=== PATIENT | female | born 1940 | race Caucasian/White ===

== ENCOUNTER 2016-10-25 09:38 | Outpatient (CLI) | payer MEDICARE, OTHER ==
[2016-10-25 14:04] LABS: BASOPHILS # (AUTO) 0.1 10^3/uL (0.0-0.1); EOSINOPHILS # (AUTO) 0.3 10^3/uL (0.0-0.7); EOSINOPHILS % (AUTO) 3.6 %; HCT - HEMATOCRIT 39.5 % (37.0-47.0); HGB - HEMOGLOBIN 13.3 g/dL (12.0-16.0); LYMPHOCYTES % (AUTO) 42.5 %; MEAN CORPUSCULAR HGB CONC 33.7 g/dL (32.0-36.0); MEAN PLATELET VOLUME 8.3 fL (7.9-10.8); MONOCYTES # (AUTO) 0.6 10^3/uL (0.0-1.0); MONOCYTES % (AUTO) 8.9 %; NEUTROPHILS # (AUTO) 3.1 10^3/uL (1.5-6.6); RED CELL DISTRIBUTION WIDTH 12.8 % (12.0-15.0); UNCORRECTED WHITE BLOOD COUNT 7.1 x10^3/uL; WHITE BLOOD COUNT 7.1 x10^3/uL (4.8-10.8)
[2016-10-25 14:24] LABS: ALBUMIN/GLOBULIN RATIO 1.4 (1.0-2.2); BILIRUBIN,TOTAL 0.6 mg/dL (0.2-1.0); BUN - BLOOD UREA NITROGEN 16 mg/dL (6-20); CALCIUM 9.6 mg/dL (8.5-10.3); CARBON DIOXIDE - CO2 28 mmol/L (21-32); CHLORIDE 107 mmol/L (101-111); CHOLESTEROL 158 mg/dL; CREATININE 0.6 mg/dL (0.4-1.0); GFR - MDRD 97 (>89); GLUCOSE 97 mg/dL (70-100); HDL CHOLESTEROL 52 mg/dL; LDL/HDL RATIO 1.2 (<4.4); POTASSIUM 4.2 mmol/L (3.5-5.0); SODIUM 142 mmol/L (135-145); TOTAL PROTEIN 7.1 g/dL (6.7-8.2); TRIGLYCERIDES 213 mg/dL; VLDL CHOLESTEROL 43 mg/dL
== END 2016-10-25 09:39 | disposition home or self-care (01) ==
LOC: LAB.WCP 09:38
PROVIDERS: ATTEND Physician Assistant Medical
DX: R94.6 Abnormal results of thyroid function studies (principal); I10 Essential (primary) hypertension; K21.9 Gastro-esophageal reflux disease without esophagitis; I25.10 Atherosclerotic heart disease of native coronary artery without angina pectoris; E78.5 Hyperlipidemia, unspecified
CPT/HCPCS: 36415; 80053; 80061; 84443; 85025

== ENCOUNTER 2016-12-19 13:01 | Outpatient (CLI) | payer MEDICARE, OTHER ==
--- NOTE | 2016-12-21 08:35 | DEXA Report ---
DEXA BONE MINERAL SCAN: 12/19/2016 CLINICAL HISTORY: A 76-year-old postmenopausal female. TECHNIQUE: Dual energy x-ray absorptiometry (DXA) was performed on a [employer] system. Regions measured are the AP spine, femoral neck, and, if needed, forearm. COMPARISON: None. In accordance with the International Society for Clinical Densitometry (ISCD) guidelines, data from previous exams may be reanalyzed using current recommendations and techniques. This is done to allow a more accurate basis for comparison with the current study. FINDINGS: The data for the lumbar spine is as follows: REGION BMD (g/cm/cm) T-SCORE Z-SCORE L1 1.331 1.7 3.3 L2 1.371 1.4 3.0 L3 1.311 0.9 2.5 L4 1.248 0.4 2.0 TOTAL 1.307 1.1 2.6 NOTE: All evaluable vertebrae are used for classification. The data for the hip is as follows: REGION BMD (g/cm/cm) T-SCORE Z-SCORE Neck 0.953 -0.6 1.3 TOTAL 0.918 -0.7 1.0 NOTE: The femoral neck or total proximal femur, whichever is lowest, is used for classification. IMPRESSION: THE WHO CLASSIFICATION BASED ON THE INTERNATIONAL REFERENCE STANDARD IS NORMAL. THE FRACTURE RISK IS NOT INCREASED. RECOMMENDATION: Patients with diagnosis of osteoporosis or osteopenia should have regular bone mineral density assessment. For those eligible for Medicare, routine testing is allowed once every 2 years. Testing frequency can be increased for patients who have rapidly progressing disease or for those who are receiving medical therapy to restore bone mass. COMMENT: World Health Organization (WHO) definitions for osteoporosis and osteopenia: NORMAL BMD: T-score at -1.0 or higher, fracture risk is low. OSTEOPENIA BMD: T-score between -1.0 and -2.5, fracture risk is increased. OSTEOPOROSIS BMD: T-score at -2.5 or lower, fracture risk high. National Osteoporosis Foundation recommends: 1. Obtain adequate dietary calcium (at least 1200 mg per day) and vitamin D (400 -800 international units per day). 2. Participate, as appropriate, in regular weightbearing and muscle- strengthening exercise. 3. Avoid tobacco use and reduce alcohol and caffeine intake. 4. For more detailed information see the website at www.NOF.org. MTDD
== END 2016-12-19 13:02 | disposition home or self-care (01) ==
LOC: DI 13:01
PROVIDERS: ATTEND Family Medicine
DX: Z78.0 Asymptomatic menopausal state (principal)
CPT/HCPCS: 77080

== ENCOUNTER 2017-07-28 14:43 | Inpatient (IN) | payer MEDICARE, OTHER ==
[2017-07-28] MEDS ORDERED: SODIUM CHLORIDE 0.9% 1,000 ML IV ONE (15:59)
[2017-07-28] MEDS ORDERED: PANTOPRAZOLE 40 MG VIAL IVP STA (16:00)
--- NOTE | 2017-07-28 16:01 | ED Physician Documentation ---
PD HPI ABD PAIN - Stated complaint Stated Complaint: FEMALE /BLEEDING - Chief complaint Chief Complaint: Abd Pain - History obtained from History obtained from: Patient - History of Present Illness Timing - onset: Other (76-year-old woman with hypertension, does take baby aspirin daily. About 5 days ago she had dark and tarry stools for 3 days with increased stomach grumbling but no overt pain. Yesterday and less so today she had dark blood from the rectum. Last colonoscopy was approximately 10 years ago.) Review of Systems Constitutional: reports: Reviewed and negative Nose: reports: Reviewed and negative Cardiac: reports: Reviewed and negative Respiratory: reports: Reviewed and negative PD PAST MEDICAL HISTORY - Past Medical History Cardiovascular: Hypertension Respiratory: None Musculoskeletal: Osteoarthritis, Chronic back pain - Present Medications Home Medications: Ambulatory Orders Medication Instructions Recorded Confirmed Atenolol [Tenormin] 50 mg PO BID 07/28/17 07/28/17 Losartan [Cozaar] 25 mg PO DAILY 07/28/17 07/28/17 Omeprazole 20 mg PO DAILY 07/28/17 07/28/17 Simvastatin 20 mg PO QPM 07/28/17 07/28/17 Zolpidem [Ambien] 10 mg PO HS 07/28/17 07/28/17 amLODIPine [Norvasc] 2.5 mg PO DAILY 07/28/17 07/28/17 - Allergies Allergies/Adverse Reactions: Allergies Allergy/AdvReac Type Severity Reaction Status Date / Time erythromycin base Allergy Cramps Verified 07/28/17 15:03 [From Erythrocin] Sulfa (Sulfonamide Allergy Hives Verified 07/28/17 15:03 Antibiotics) Tetanus Vaccines and Toxoid Allergy Edema Verified 07/28/17 15:03 - Family History Family history: reports: Non contributory PD ED PE NORMAL - Vitals Vital signs reviewed: Yes - General General: Alert and oriented X 3, No acute distress - HEENT HEENT: PERRL, EOMI - Neck Neck: Supple, no meningeal sign, No bony TTP - Cardiac Cardiac: RRR, No murmur - Respiratory Respiratory: No respiratory distress, Clear bilaterally - Abdomen Abdomen: Soft, Non tender, Other (Some blood outside the rectum with maroon stools, chaperoned by Katelyn BLAS) - Back Back: No CVA TTP, No spinal TTP - Extremities Extremities: No edema, No calf tenderness / cord - Neuro Neuro: Alert and oriented X 3, Normal speech - Psych Psych: Normal mood, Normal affect Results - Vitals Vitals: Vital Signs - 24 hr 07/28/17 14:58 Temperature 36.8 C Heart Rate 77 Respiratory 16 Rate Blood Pressure 146/85 H O2 Saturation 98 Oxygen O2 Source Room air - Labs Labs: Laboratory Tests 07/28/17 07/28/17 07/28/17 15:40 15:40 15:40 WBC 8.4 RBC 4.26 Hgb 12.7 Hct 38.8 MCV 91.1 MCH 29.8 MCHC 32.7 RDW 13.0 Plt Count 363 MPV 7.2 L Neut # 4.4 Lymph # 3.0 [place] # 0.8 Eos # 0.1 Baso # 0.0 Absolute Nucleated RBC 0.00 Nucleated RBC % 0.0 PT 11.3 INR 1.0 Sodium 140 Potassium 3.9 Chloride 104 Carbon Dioxide 26 Anion Gap 10.0 BUN 20 Creatinine 0.6 Estimated GFR (MDRD) 97 Glucose 104 H Calcium 9.7 Total Bilirubin 0.4 AST 22 ALT 18 Alkaline Phosphatase 95 Total Protein 7.6 Albumin 4.3 Globulin 3.3 Albumin/Globulin Ratio 1.3 Lipase 20 L Blood Type Blood Type Recheck Antibody Screen Crossmatch IS Only 07/28/17 07/28/17 15:40 16:06 WBC RBC Hgb Hct MCV MCH MCHC RDW Plt Count MPV Neut # Lymph # [place] # Eos # Baso # Absolute Nucleated RBC Nucleated RBC % PT INR Sodium Potassium Chloride Carbon Dioxide Anion Gap BUN Creatinine Estimated GFR (MDRD) Glucose Calcium Total Bilirubin AST ALT Alkaline Phosphatase Total Protein Albumin Globulin Albumin/Globulin Ratio Lipase Blood Type B POSITIVE Blood Type Recheck B POSITIVE Antibody Screen NEGATIVE Crossmatch IS Only See Detail PD MEDICAL DECISION MAKING - ED course ED course: 76-year-old woman with GI bleeding, she is not anticoagulated except for low- dose aspirin and has no history or risk factors for liver disease. Spoke with the on-call surgeon, Dr. Willi Johnston about potential outpatient scopes, but he felt based on active bleeding that she should be placed in observation for serial H&H and later decision about whether scopes get done inpatient or outpatient. Spoke with Dr. Severino for observation at 4:35 PM. Departure - Departure Disposition: ED Place in Observation Clinical Impression: GI bleed Qualifiers: GI bleed type/associated pathology: unspecified gastrointestinal hemorrhage type Qualified Code(s): K92.2 - Gastrointestinal hemorrhage, unspecified Condition: Stable Discharge Date/Time: 07/28/17 17:38
[2017-07-28 16:02] LABS: BASOPHILS % (AUTO) 0.5 %; EOSINOPHILS # (AUTO) 0.1 10^3/uL (0.0-0.7); EOSINOPHILS % (AUTO) 1.7 %; HGB - HEMOGLOBIN 12.7 g/dL (12.0-16.0); LYMPHOCYTES % (AUTO) 35.3 %; MEAN CORPUSCULAR HEMOGLOBIN 29.8 pg (27.0-31.0); MEAN CORPUSCULAR HGB CONC 32.7 g/dL (32.0-36.0); MEAN CORPUSCULAR VOLUME 91.1 fL (81.0-99.0); MEAN PLATELET VOLUME 7.2 fL (7.9-10.8); MONOCYTES # (AUTO) 0.8 10^3/uL (0.0-1.0); MONOCYTES % (AUTO) 9.7 %; NEUTROPHILS # (AUTO) 4.4 10^3/uL (1.5-6.6); NEUTROPHILS % (AUTO) 52.8 %; PLT - PLATELET COUNT 363 10^3/uL (130-450); RED BLOOD COUNT 4.26 10^6/uL (4.20-5.40); WHITE BLOOD COUNT 8.4 x10^3/uL (4.8-10.8)
[2017-07-28 16:19] LABS: ALBUMIN 4.3 g/dL (3.2-5.5); ALBUMIN/GLOBULIN RATIO 1.3 (1.0-2.2); BILIRUBIN,TOTAL 0.4 mg/dL (0.2-1.0); CALCIUM 9.7 mg/dL (8.5-10.3); CREATININE 0.6 mg/dL (0.4-1.0); TOTAL PROTEIN 7.6 g/dL (6.7-8.2)
[2017-07-28 16:20] LABS: PT - PROTHROMBIN TIME 11.3 secs (9.9-12.6)
[2017-07-28] MEDS ORDERED: SODIUM CHLORIDE FLUSH 0.9% 10 ML SYRINGE IVP PRN (16:53)
--- NOTE | 2017-07-28 16:57 | HISTORY & PHYSICAL EXAMINATION ---
Chief Complaint - Chief Complaint Chief Complaint: dark stools, dilcia blood History of Present Illness - Admitted From Admitted From:: ED - History Obtained From Records Reviewed: yes History obtained from: chart review, patient Exam Limitations: none - History of Present Illness HPI Comment/Other: Jada Izquierdo is a pleasant 76-year old female with a past medical history of seasonal allergies, urinary frequency, nocturia, cataracts, chronic back pain, c -section, hypertension, hyperlipidemia, and GERD. She presented to the ED after having and dark stools since Saturday that turned to dilcia blood shortly before being driven to the ED by her good friend Leighton. She denies chest pain, SOB, abdominal pain, nausea, vomiting or a new cough. She describes these episodes as a "gas feeling without cramping, and being surprised when blood comes into the toilet". She became worried when the frequency increased. She will be admitted for serial H & H's, vital sign monitoring and a general surgery consult. She will be in the observation unit and kept on clear liquids. 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 She did not know her father, and her mother of natural causes. Living arrangement: At home Living Situation: Alone (lives with her cat, "buzz".) Social History Notes: Patient states that she was , but her in 2007 and she has since stayed a . [place]. They moved from [facility]. 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 These days she is very close to her special friend Leighton whom she spends most of her days with since they are both widows. She has a cat named Juan. She denies tobacco, alcohol, or illicit drug use. She wishes to be a Full code. - Substance History Use: Uses substance without health or social issues: NONE Abuse: Recurrent use of substance despite neg consequences: NONE Dependence: Experiences withdrawal or developed tolerances: NONE - POLST Patient has POLST: No POLST Status: Full Code Meds/Allgy - Home Medications Home Medications: Ambulatory Orders Medication Instructions Recorded Confirmed Atenolol [Tenormin] 50 mg PO BID 07/28/17 07/28/17 Losartan [Cozaar] 25 mg PO DAILY 07/28/17 07/28/17 Omeprazole 20 mg PO DAILY 07/28/17 07/28/17 Simvastatin 20 mg PO QPM 07/28/17 07/28/17 Zolpidem [Ambien] 10 mg PO HS 07/28/17 07/28/17 amLODIPine [Norvasc] 2.5 mg PO DAILY 07/28/17 07/28/17 - Allergies Allergies/Adverse Reactions: Allergies Allergy/AdvReac Type Severity Reaction Status Date / Time erythromycin base Allergy Cramps Verified 07/28/17 15:03 [From Erythrocin] Sulfa (Sulfonamide Allergy Hives Verified 07/28/17 15:03 Antibiotics) Tetanus Vaccines and Toxoid Allergy Edema Verified 07/28/17 15:03 Review of Systems - Constitutional Constitutional: denies: Fatigue, Fever, Chills - Eyes Eyes: reports: Vision loss, Corrective lenses. denies: Pain, Irritation - Ears, Nose & Throat Ears, Nose & Throat: reports: Postnasal drainage. denies: Ear pain, Hearing loss, Hearing aids, Tinnitus - Cardiovascular Cariovascular: denies: Irregular heart rate, Palpitations, Chest pain, Edema - Respiratory Respiratory: denies: Cough, Sputum production, Wheezing, Snoring - Gastrointestinal Gastrointestinal: reports: Change in bowel habits, Black stools, Bloody stools, Reflux/heartburn. denies: Abdominal pain, Abdominal distention - Genitourinary Genitourinary: reports: Frequency, Urgency, Nocturia - Musculoskeletal Musculoskeletal: reports: Back pain. denies: Muscle aches, Stiffness - Integumentary Integumentary: reports: Dryness. denies: Rash, Pruritis, Lesions - Neurological Neurological: denies: General weakness, Focal weakness, Headache, Dizziness - Psychiatric Psychiatric: denies: Depression, Anxiety, Suicidal - Endocrine Endocrine: denies: Polyuria, Polydypsia - Hematologic/Lymphatic Hematologic/Lymphatic: denies: Anemia, Bruising, Petechiae - All Other Systems All Other Systems: reports: Reviewed and negative Exam - Vital Signs Reviewed Vital Signs: Yes Vital Signs: Vital Signs x48h Temp Pulse Resp BP Pulse Ox 07/28/17 14:58 36.8 C 77 16 146/85 H 98 - Physical Exam General Appearance: positive: No acute distress, Alert Eyes Bilateral: positive: Normal inspection, PERRL ENT: positive: ENT inspection nml, Pharynx nml, No signs of dehydration Neck: positive: Nml inspection, Thyroid nml, No JVD, Trachea midline Respiratory: positive: Chest non-tender, No respiratory distress, Breath sounds nml Cardiovascular: positive: Regular rate & rhythm, No murmur, No gallop Peripheral Pulses: positive: 2+ Abdomen: positive: Non-tender, No organomegaly, Nml bowel sounds, No distention Rectal: positive: Bloody stool Back: positive: Nml inspection Skin: positive: No rash, Warm, Dry Extremities: positive: Non-tender, Full ROM, Nml appearance, No pedal edema Neurologic/Psychiatric: positive: Oriented x3, CN's nml (2-12), Motor nml, Sensation nml, Mood/affect nml Reflexes: Bicep (R): 3+, Bicep (L): 3+ Conclusion/Plan - Problem List (1) GI bleed Conclusion/Plan: Patient admits to black stools that began on Saturday. They have becoming more frequent and they are having a bloody appearance. She does not feel dizzy , and has no pain with these episodes. She has 3 times of "filling the toilet with bloody stool since this AM" and notes that these episodes are "strictly anal". She denies foreign objects that may have been placed in her anus. Plan: General surgery, John Johnston was consulted and I spoke to him who recommends serial H & H's, monitor over night. Qualifiers: GI bleed type/associated pathology: unspecified gastrointestinal hemorrhage type Qualified Code(s): K92.2 - Gastrointestinal hemorrhage, unspecified (2) Hypertension Conclusion/Plan: Patient is noted to have a normal to high blood pressure upon admission. She has been on antihypertensives for quite a few years. She sees Dr. Maldonado as indicated. Plan: Continue antihypertensives and monitor vital signs. (3) Hyperlipidemia Conclusion/Plan: Patient admits to a history of a cardiac catheterization, but does not know why she had one. She states that she has taken a statin for many years. Plan: Continue and monitor liver enzymes. (4) GERD (gastroesophageal reflux disease) Conclusion/Plan: Patient has not had symptoms and continues on a PPI at home. Plan: Continue and alcoholic counselor patient on the potential negative side effects upon discharge. - Lab Results Lab results reviewed: Yes Guillermo Bones: 07/28/17 15:40 07/28/17 15:40 - EKG Results EKG Interpreted Independently: Yes Core Measures - Anticipated LOS I expect patient to be DC'd or transferred within 96 hours.: Yes - DVT/VTE - Prophylaxis VTE/DVT Device ordered at admit?: Yes VTE/DVT Prophylaxis med ordered at admit?: No Not Ordered - Medical Reason: Contraindicated - Stroke - Rehab Assessment Rehab services assessment to be ordered?: No Not Ordered - Medical Reason: Contraindicated - AMI - Statin at Admit Aspirin Prescribed on Admit: No Not Ordered - Medical Reason: Contraindicated
[2017-07-28] MEDS: SODIUM CHLORIDE FLUSH 0.9% 10 ML SYRINGE IVP SCH (18:07)
[2017-07-28] MEDS: ATENOLOL 25 MG TABLET PO SCH (21:56)
[2017-07-28 22:56] LABS: HGB - HEMOGLOBIN 10.7 g/dL (12.0-16.0)
[2017-07-29] MEDS: ZOLPIDEM 5 MG TABLET PO SCH ×2 (03:13→22:05)
[2017-07-29] MEDS: SODIUM CHLORIDE FLUSH 0.9% 10 ML SYRINGE IVP SCH ×3 (03:13→22:06)
[2017-07-29 06:00] LABS: BASOPHILS # (AUTO) 0.1 10^3/uL (0.0-0.1); BASOPHILS % (AUTO) 0.7 %; EOSINOPHILS # (AUTO) 0.2 10^3/uL (0.0-0.7); EOSINOPHILS % (AUTO) 2.7 %; HGB - HEMOGLOBIN 10.3 g/dL (12.0-16.0); LYMPHOCYTES # (AUTO) 3.4 10^3/uL (1.5-3.5); LYMPHOCYTES % (AUTO) 44.5 %; MEAN CORPUSCULAR HEMOGLOBIN 30.5 pg (27.0-31.0); MEAN CORPUSCULAR HGB CONC 33.6 g/dL (32.0-36.0); MEAN CORPUSCULAR VOLUME 90.7 fL (81.0-99.0); MONOCYTES # (AUTO) 0.8 10^3/uL (0.0-1.0); MONOCYTES % (AUTO) 10.1 %; NEUTROPHILS # (AUTO) 3.2 10^3/uL (1.5-6.6); PLT - PLATELET COUNT 293 10^3/uL (130-450); RED BLOOD COUNT 3.37 10^6/uL (4.20-5.40); WHITE BLOOD COUNT 7.6 x10^3/uL (4.8-10.8)
[2017-07-29 06:13] LABS: ALBUMIN 3.2 g/dL (3.2-5.5); ALBUMIN/GLOBULIN RATIO 1.2 (1.0-2.2); BILIRUBIN,TOTAL 0.6 mg/dL (0.2-1.0); CALCIUM 8.7 mg/dL (8.5-10.3); CREATININE 0.6 mg/dL (0.4-1.0); TOTAL PROTEIN 5.9 g/dL (6.7-8.2)
[2017-07-29] MEDS: ATENOLOL 25 MG TABLET PO SCH ×2 (08:59→22:05)
[2017-07-29] MEDS: POLYETHYLENE GLYCOL 3350 17 GM PACKET PO SCH (09:00)
[2017-07-29] MEDS: LOSARTAN 50 MG TABLET PO SCH (09:00)
[2017-07-29] MEDS: amLODIPine 5 MG TABLET PO SCH (09:01)
--- NOTE | 2017-07-29 11:05 | Discharge Plan ---
Discharge Plan Disposition: 01 Home, Self Care Condition: Good Prescriptions: Pantoprazole Sodium [Protonix] 40 mg PO DAILY #30 tablet. Diet: Regular Activity Restrictions: No Restrictions Shower Restrictions: No Driving Restrictions: No Weight Bearing: Full Weight Additional Instructions or Follow Up instructions: You were admitted for a GI bleed. Since you had an additional bout of bleeding , you were prepped for a GI procedure with Dr. John Johnston. Results of this test were that you have a hiatal hernia and that you have diverticulosis. Dr. Johnston recommends for you to be on a proton pump inhibitor (PPI). Please follow up with your PCP in one week. Monitor stools and eat a soft diet. See general surgery in about 6 weeks. No Smoking: If you smoke, Please STOP! Call for help. Follow-up with: Alan Maldonado MD [Primary Care Provider] -
[2017-07-29] MEDS: SODIUM/POTASSIUM/MAG SULFATES 354 ML PREP KIT PO SCH (16:12)
[2017-07-30] MEDS: SODIUM CHLORIDE FLUSH 0.9% 10 ML SYRINGE IVP SCH ×2 (00:43→08:24)
--- NOTE | 2017-07-30 03:46 | CONSULTATION NOTE ---
DATE OF SERVICE: 07/29/2017 Physician: Raulito Johnston MD REFERRING PROVIDER: Lorenza Swanson, Nurse Practitioner REASON FOR CONSULTATION: Hematochezia. HISTORY OF PRESENT ILLNESS: The patient is a 76-year-old female who presents with a 6-day history of black stools. She had that for 3 days and then her stool turned bright red 2 days ago. Currently, she is just passing clots. She denies any significant abdominal pain , other than feeling mild bloating. This is the first time this has occurred. Her last colonoscopy was over 10 years ago being normal. She denies any family history of colon cancer. She denies any history of reflux, heartburn or indigestion. She has occassional upper abdomen discomfort for which she uses Tums. She was admitted to the hospital and observed. Her hemoglobin initially was 12 and decreased down to 10 overnight. PAST MEDICAL HISTORY: Hypertension, hypercholesterolemia, arthritis, chronic back pain, gastroesophageal reflux disease. PAST SURGICAL HISTORY: , cardiac catheterization and cataracts. FAMILY HISTORY: Noncontributory. SOCIAL HISTORY: The patient is a . HABITS: The patient denies any smoking, alcohol or drug use. MEDICATIONS 1. Atenolol. 2. Cozaar. 3. Omeprazole. 4. Simvastatin. 5. Ambien. 6. Norvasc. ALLERGIES: ERYTHROMYCIN. REVIEW OF SYSTEMS A complete review of systems was obtained. Pertinent positives are: GASTROINTESTINAL: Hematochezia. MUSCULOSKELETAL: Arthritis. PHYSICAL EXAMINATION VITAL SIGNS: Temperature is 36.8, pulse 77, respirations 16, blood pressure 146 /85. GENERAL: The patient is a healthy-appearing female, in no distress. HEENT: Eyes nonicteric. NECK: No lymphadenopathy. HEART: Regular. LUNGS: Clear. BACK: Nontender. ABDOMEN: Soft, nontender. EXTREMITIES: No edema or cyanosis. NEUROLOGICAL: The patient appears to be neurologically intact without any deficit. PSYCHOLOGICAL: The patient is coherent cooperative and appears to answer questions fully. ASSESSMENT 1. Hematochezia, unknown etiology. She first had black stools, which has now turned to bright red and currently clots. I would recommend the patient undergo upper and lower endoscopy. This would be esophagogastroduodenoscopy and colonoscopy with possible biopsy, polypectomy or control of bleeding. I have explained the risks and possible complication of the procedure to her which include but are not limited to bleeding, infection, anesthesia risks, heart and lung problems, negative endoscopy with possible rebleeding in the future, colon perforation with morbidity, need for further intervention, incomplete preparation, missing lesions that may or may not be a significant, unable to complete the endoscopy. She accepts the risks and wishes to proceed. No guarantees given or implied. 2. Hypertension, controlled on medications. 3. Abdominal discomfort for which she occassionally uses Tums. PLAN 1. Bowel prep. 2. Esophagogastroduodenoscopy with possible colonoscopy, polypectomy, biopsy and control of bleeding in the a.m. TD: 07/30/2017 03:43 LIZZIE
[2017-07-30] MEDS: SODIUM/POTASSIUM/MAG SULFATES 354 ML PREP KIT PO SCH (04:48)
[2017-07-30] MEDS: amLODIPine 5 MG TABLET PO SCH (08:23)
[2017-07-30] MEDS: LOSARTAN 50 MG TABLET PO SCH (08:23)
[2017-07-30] MEDS: ATENOLOL 25 MG TABLET PO SCH (08:23)
[2017-07-30] MEDS: POLYETHYLENE GLYCOL 3350 17 GM PACKET PO SCH (08:24)
[2017-07-30 10:40] LABS: BASOPHILS # (AUTO) 0.1 10^3/uL (0.0-0.1); BASOPHILS % (AUTO) 0.7 %; EOSINOPHILS # (AUTO) 0.1 10^3/uL (0.0-0.7); EOSINOPHILS % (AUTO) 0.7 %; HGB - HEMOGLOBIN 10.6 g/dL (12.0-16.0); LYMPHOCYTES # (AUTO) 2.9 10^3/uL (1.5-3.5); LYMPHOCYTES % (AUTO) 29.4 %; MEAN CORPUSCULAR HEMOGLOBIN 30.8 pg (27.0-31.0); MEAN CORPUSCULAR HGB CONC 34.1 g/dL (32.0-36.0); MEAN CORPUSCULAR VOLUME 90.3 fL (81.0-99.0); MEAN PLATELET VOLUME 7.1 fL (7.9-10.8); MONOCYTES # (AUTO) 0.7 10^3/uL (0.0-1.0); MONOCYTES % (AUTO) 6.7 %; NEUTROPHILS # (AUTO) 6.1 10^3/uL (1.5-6.6); NEUTROPHILS % (AUTO) 62.5 %; PLT - PLATELET COUNT 298 10^3/uL (130-450); RED BLOOD COUNT 3.44 10^6/uL (4.20-5.40); RED CELL DISTRIBUTION WIDTH 13.1 % (12.0-15.0); WHITE BLOOD COUNT 9.8 x10^3/uL (4.8-10.8)
[2017-07-30 10:49] LABS: ALBUMIN 3.8 g/dL (3.2-5.5); ALBUMIN/GLOBULIN RATIO 1.4 (1.0-2.2); BILIRUBIN,TOTAL 0.7 mg/dL (0.2-1.0); CREATININE 0.6 mg/dL (0.4-1.0); TOTAL PROTEIN 6.5 g/dL (6.7-8.2)
--- NOTE | 2017-07-30 11:46 | DISCHARGE SUMMARY ---
Discharge Summary Admit Date: 07/28/17 Discharge Date: 07/30/17 Discharging Provider: ATILIO Downey Primary Care Provider: Manny Zapata Code Status: Attempt Resuscitation Condition at Discharge: Good Discharge Disposition: 01 Home, Self Care - DIAGNOSES Admission Diagnoses: Gastrointestinal hemorrhage, unspecified (K92.2) Essential (primary) hypertension (I10) Gastro-esophageal reflux disease without esophagitis (K21.9) Hyperlipidemia, unspecified (E78.5) Discharge Diagnoses with Status of Each Condition: Diverticula of colon (K57.30) new finding on this admission. Hiatal hernia (K44.9) new finding on this admission. GI bleed (K92.2) resolved. Hypertension (I10) chronic, stable. GERD (gastroesophageal reflux disease) (K21.9) chronic stable. Hyperlipidemia (E78.5) chronic, stable. - HPI History of Present Illness: Jada Izquierdo is a pleasant 76-year old female with a past medical history of seasonal allergies, urinary frequency, nocturia, cataracts, chronic back pain, c -section, hypertension, hyperlipidemia, and GERD. She presented to the ED after having and dark stools since Saturday that turned to dilcia blood shortly before being driven to the ED by her good friend Leighton. She denies chest pain, SOB, abdominal pain, nausea, vomiting or a new cough. She describes these episodes as a "gas feeling without cramping, and being surprised when blood comes into the toilet". She became worried when the frequency increased. She will be admitted for serial H & H's, vital sign monitoring and a general surgery consult. She will be in the observation unit and kept on clear liquids. - HOSPITAL COURSE Hospital Course: The following diagnoses were prevalent during this hospital stay: (1) GI bleed- Patient admits to black stools that began on Saturday. They have becoming more frequent and they are having a bloody appearance. She does not feel dizzy, and has no pain with these episodes. She has 3 times of "filling the toilet with bloody stool since this AM" and notes that these episodes are "strictly anal". She denies foreign objects that may have been placed in her anus. General surgery, John Johnston was consulted and I spoke to him who recommends serial H & H's. Patient underwent a Bowel prep for a colonoscopy/EGD. A hiatal hernia and diverticulosis was discovered. PPI for home use. (2) Hypertension- Patient is noted to have a normal to high blood pressure upon admission. She has been on antihypertensives for quite a few years. She sees Dr. Maldonado as indicated. Patient was continued on antihypertensives and her vital signs were monitored. (3) Hyperlipidemia- Patient admits to a history of a cardiac catheterization, but does not know why she had one. She states that she has taken a statin for many years. (4) GERD (gastroesophageal reflux disease)- Patient has not had symptoms and continues on a PPI at home. Patient was counseled upon discharge. Patient was in stable condition and discharged home. - ALLERGIES Allergies/Adverse Reactions: Allergies Allergy/AdvReac Type Severity Reaction Status Date / Time erythromycin base Allergy Cramps Verified 07/28/17 15:03 [From Erythrocin] Sulfa (Sulfonamide Allergy Hives Verified 07/28/17 15:03 Antibiotics) Tetanus Vaccines and Toxoid Allergy Edema Verified 07/28/17 15:03 - MEDICATIONS Home Medications: Ambulatory Orders Medication Instructions Recorded Confirmed Atenolol [Tenormin] 50 mg PO BID 07/28/17 07/28/17 Losartan [Cozaar] 25 mg PO DAILY 07/28/17 07/28/17 Omeprazole 20 mg PO DAILY 07/28/17 07/28/17 Simvastatin 20 mg PO QPM 07/28/17 07/28/17 Zolpidem [Ambien] 10 mg PO HS 07/28/17 07/28/17 amLODIPine [Norvasc] 2.5 mg PO DAILY 07/28/17 07/28/17 Pantoprazole Sodium [Protonix] 40 mg PO DAILY #30 tablet. 07/30/17 - PHYSICAL EXAM AT DISCHARGE General Appearance: positive: No acute distress, Alert Eyes Bilateral: positive: Normal inspection, PERRL ENT: positive: ENT inspection nml, Pharynx nml, No signs of dehydration Neck: positive: Nml inspection, Thyroid nml, No JVD Respiratory: positive: Chest non-tender, No respiratory distress, Breath sounds nml Cardiovascular: positive: Regular rate & rhythm, No murmur, No gallop Peripheral Pulses: positive: 2+ Abdomen: positive: No organomegaly, Tenderness, Guarding, Abnml bowel sounds Back: positive: Nml inspection Skin: positive: No rash, Warm, Dry, Pallor Extremities: positive: Non-tender, Full ROM, Nml appearance, No pedal edema Neurologic/Psychiatric: positive: Oriented x3, CN's nml (2-12), Motor nml, Sensation nml, Depressed mood/affect Reflexes: Bicep (R): 3+, Bicep (L): 3+ - LABS Result Diagrams: 07/30/17 10:20 07/30/17 10:20 - FOLLOW UP Follow Up: Disposition: Home, Self Care Condition: Good Prescriptions: Pantoprazole Sodium [Protonix] 40 mg PO DAILY #30 tablet. Diet: Regular Activity Restrictions: No Restrictions Shower Restrictions: No Driving Restrictions: No Weight Bearing: Full Weight Additional Instructions or Follow Up instructions: You were admitted for a GI bleed. Since you had an additional bout of bleeding , you were prepped for a GI procedure with Dr. John Johnston. Results of this test were that you have a hiatal hernia and that you have diverticulosis. Dr. Johnston recommends for you to be on a proton pump inhibitor (PPI). Please follow up with your PCP in one week. Monitor stools and eat a soft diet. See general surgery in about 6 weeks. - TIME SPENT Time Spent in Discharge (Minutes): 60
--- NOTE | 2017-07-30 11:47 | PROVIDER PROGRESS NOTE ---
Assessment/Plan - Problem List (1) GI bleed Qualifiers: GI bleed type/associated pathology: unspecified gastrointestinal hemorrhage type Qualified Code(s): K92.2 - Gastrointestinal hemorrhage, unspecified Assessment/Plan: Patient admits to black stools that began on Saturday. They have becoming more frequent and they are having a bloody appearance. She does not feel dizzy , and has no pain with these episodes. She has 3 times of "filling the toilet with bloody stool since this AM" and notes that these episodes are "strictly anal". She denies foreign objects that may have been placed in her anus. General surgery, John Johnston was consulted and I spoke to him who recommends serial H & H's. bowel prep tonight for colonoscopy/EGD tomorrow AM. Plan: Bowel prep this PM (2) Hypertension Qualifiers: Hypertension type: essential hypertension Qualified Code(s): I10 - Essential (primary) hypertension Assessment/Plan: Patient is noted to have a normal to high blood pressure upon admission. She has been on antihypertensives for quite a few years. She sees Dr. Maldonado as indicated. Plan: Continue antihypertensives and monitor vital signs. (3) Hyperlipidemia Qualifiers: Hyperlipidemia type: mixed hyperlipidemia Qualified Code(s): E78.2 - Mixed hyperlipidemia Assessment/Plan: Patient admits to a history of a cardiac catheterization, but does not know why she had one. She states that she has taken a statin for many years. Plan: Continue and monitor liver enzymes. (4) GERD (gastroesophageal reflux disease) Assessment/Plan: Patient has not had symptoms and continues on a PPI at home. 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 - Current Meds Current Meds: Current Medications Generic Name Dose Route Start Last Admin Trade Name Freq PRN Reason Stop Dose Admin Amlodipine Besylate 2.5 mg 07/29/17 09:00 07/30/17 08:23 Norvasc PO 2.5 mg DAILY MISTI Administration Atenolol 50 mg 07/28/17 21:00 07/30/17 08:23 Tenormin PO 50 mg BID MISTI Administration Losartan Potassium 25 mg 07/29/17 09:00 07/30/17 08:23 Cozaar PO 25 mg DAILY MISTI Administration Polyethylene Glycol 17 gm 07/29/17 09:00 07/30/17 08:24 Miralax PO Not Given DAILY MISTI Sodium Chloride 10 ml 07/28/17 17:00 07/30/17 08:24 Normal Saline Flush 0.9% IVP 10 ml 0100,0900,1700 MISTI Administration Zolpidem Tartrate 10 mg 07/28/17 21:00 07/29/17 22:05 Ambien PO 10 mg HS MISTI Administration - Lab Result Lab results reviewed: Yes Fish Bone Diagrams: 07/30/17 10:20 07/30/17 10:20 - EKG Results EKG Interpreted Independently: Yes EKG Comparison: Unchanged from prior EKG - Diagnostic Imaging Results Diagnostic Imaging Results: Prelim report reviewed - Additional Planning Condition/Complexity: Improved Consult/Specialty: Gastroenterology Plan Discussed with:: Patient Time Spent: 15-30 minutes Subjective - Subjective Patient Reports: Feeling Better, No Complaints (Patient states that she had one more bloody BM that had little to no stool in it.) Nursing Reports: No Complaints Objective Vital Signs: Vital Signs - 24 hr 07/29/17 07/30/17 07/30/17 15:43 00:40 07:50 Temperature 36.9 C 36.5 C 36.7 C Heart Rate [ 73 73 75 Brachial] Respiratory 16 16 18 Rate Blood Pressure 130/66 134/70 H 134/77 H [Right Brachial artery] O2 Saturation 98 98 100 Oxygen O2 Source Room air I&O (Last 24 Hrs): Intake and Output Totals x24h 07/28/17 07/29/17 07/30/17 23:59 23:59 23:59 Intake Total 1997 Balance 1997 General: Alert, Oriented x3 HEENT: PERRLA Neck: Supple, No JVD Neuro: Alert, CN 2-12 Grossly Intact, Oriented Times 3 Cardiovascular: Regular rate Respiratory: Chest non-tender, No respiratory distress, Breath sounds nml Abdomen: Normal bowel sounds, Soft Rectal: Control Positive Skin: No breakdown - Results Results: Laboratory Results WBC 9.8 x10^3/uL (4.8-10.8) 07/30/17 10:20 RBC 3.44 10^6/uL (4.20-5.40) L 07/30/17 10:20 Hgb 10.6 g/dL (12.0-16.0) L 07/30/17 10:20 Hct 31.1 % (37.0-47.0) L 07/30/17 10:20 MCV 90.3 fL (81.0-99.0) 07/30/17 10:20 MCH 30.8 pg (27.0-31.0) 07/30/17 10:20 MCHC 34.1 g/dL (32.0-36.0) 07/30/17 10:20 RDW 13.1 % (12.0-15.0) 07/30/17 10:20 Plt Count 298 10^3/uL (130-450) 07/30/17 10:20 MPV 7.1 fL (7.9-10.8) L 07/30/17 10:20 Neut # 6.1 10^3/uL (1.5-6.6) 07/30/17 10:20 Lymph # 2.9 10^3/uL (1.5-3.5) 07/30/17 10:20 [place] # 0.7 10^3/uL (0.0-1.0) 07/30/17 10:20 Eos # 0.1 10^3/uL (0.0-0.7) 07/30/17 10:20 Baso # 0.1 10^3/uL (0.0-0.1) 07/30/17 10:20 Absolute Nucleated RBC 0.00 x10^3/uL 07/30/17 10:20 Nucleated RBC % 0.0 /100WBC 07/30/17 10:20 PT 11.3 secs (9.9-12.6) 07/28/17 15:40 INR 1.0 (0.8-1.2) 07/28/17 15:40 Sodium 139 mmol/L (135-145) 07/30/17 10:20 Potassium 3.4 mmol/L (3.5-5.0) L 07/30/17 10:20 Chloride 103 mmol/L (101-111) 07/30/17 10:20 Carbon Dioxide 25 mmol/L (21-32) 07/30/17 10:20 Anion Gap 11.0 (6-13) 07/30/17 10:20 BUN 15 mg/dL (6-20) 07/30/17 10:20 Creatinine 0.6 mg/dL (0.4-1.0) 07/30/17 10:20 Estimated GFR (MDRD) 97 (>89) 07/30/17 10:20 Glucose 105 mg/dL (70-100) H 07/30/17 10:20 Calcium 9.0 mg/dL (8.5-10.3) 07/30/17 10:20 Total Bilirubin 0.7 mg/dL (0.2-1.0) 07/30/17 10:20 AST 25 IU/L (10-42) 07/30/17 10:20 ALT 21 IU/L (10-60) 07/30/17 10:20 Alkaline Phosphatase 76 IU/L (42-121) 07/30/17 10:20 Total Protein 6.5 g/dL (6.7-8.2) L 07/30/17 10:20 Albumin 3.8 g/dL (3.2-5.5) 07/30/17 10:20 Globulin 2.7 g/dL (2.1-4.2) 07/30/17 10:20 Albumin/Globulin Ratio 1.4 (1.0-2.2) 07/30/17 10:20 Lipase 20 U/L (22-51) L 07/28/17 15:40 Blood Type B POSITIVE 07/28/17 16:06 Blood Type Recheck B POSITIVE 07/28/17 15:40 Antibody Screen NEGATIVE 07/28/17 16:06 Crossmatch IS Only See Detail 07/28/17 16:06
[2017-07-30] MEDS ORDERED: PROPOFOL 200 MG/20 ML VIAL IVP ONE (14:08)
[2017-07-30] MEDS ORDERED: GLYCOPYRROLATE 1 MG/5 ML VIAL IVP ONE (14:08)
[2017-07-30] MEDS ORDERED: MIDAZOLAM 2 MG/2 ML VIAL IVP ONE (14:08)
[2017-07-30] MEDS ORDERED: KETAMINE 500 MG/10 ML VIAL IVP ONE (14:08)
[2017-07-30] MEDS ORDERED: LACTATED RINGERS 1,000 ML IV ONE (14:38)
[2017-07-30] MEDS ORDERED: BENZOCAINE/TETRACAINE/BUTAMBEN SPRAY 56 GM TOP ONE (14:39)
[2017-07-30 16:21] VITALS: BP 145/67
[2017-07-30] MEDS ORDERED: PANTOPRAZOLE 40 MG TABLET PO SCH (17:00)
== END 2017-07-30 18:04 | disposition home or self-care (01) | DRG 382 ==
LOC: ED 14:43 → OBS 16:53 → OBSVTOIN 07-29 12:36 → MS2 07-29 13:53
PROVIDERS: ADMIT Nurse Practitioner; ATTEND Nurse Practitioner
PROC: 0DB38ZX Excision of Lower Esophagus, Via Natural or Artificial Opening Endoscopic, Diagnostic (ICD-10-PCS; 2017-07-30)
PROC: 0DBE8ZX Excision of Large Intestine, Via Natural or Artificial Opening Endoscopic, Diagnostic (ICD-10-PCS; 2017-07-30)
PROC: 0DB98ZX Excision of Duodenum, Via Natural or Artificial Opening Endoscopic, Diagnostic (ICD-10-PCS; principal; 2017-07-30 12:15)
PROC: 0DB68ZX Excision of Stomach, Via Natural or Artificial Opening Endoscopic, Diagnostic (ICD-10-PCS; 2017-07-30 12:15)
DX: K22.11 Ulcer of esophagus with bleeding (principal); K44.9 Diaphragmatic hernia without obstruction or gangrene; K57.30 Diverticulosis of large intestine without perforation or abscess without bleeding; I10 Essential (primary) hypertension; E78.5 Hyperlipidemia, unspecified; K21.9 Gastro-esophageal reflux disease without esophagitis; M19.90 Unspecified osteoarthritis, unspecified site; G89.29 Other chronic pain; M54.9 Dorsalgia, unspecified; H54.7 Unspecified visual loss; R35.0 Frequency of micturition; R39.15 Urgency of urination; R35.1 Nocturia; Z79.899 Other long term (current) drug therapy
CPT/HCPCS: 36415; 80053; 83690; 85014; 85018; 85025; 85610; 86850; 86900; 86901; 86920; 96361; 96374; 99283; 99284

== ENCOUNTER 2017-12-09 08:00 | Outpatient (CLI) | payer MEDICARE ==
[2017-12-09 12:55] LABS: BASOPHILS % (AUTO) 0.6 %; EOSINOPHILS # (AUTO) 0.2 10^3/uL (0.0-0.7); EOSINOPHILS % (AUTO) 3.1 %; HGB - HEMOGLOBIN 13.1 g/dL (12.0-16.0); LYMPHOCYTES # (AUTO) 2.6 10^3/uL (1.5-3.5); LYMPHOCYTES % (AUTO) 38.9 %; MEAN CORPUSCULAR HEMOGLOBIN 29.6 pg (27.0-31.0); MEAN CORPUSCULAR HGB CONC 32.9 g/dL (32.0-36.0); MEAN CORPUSCULAR VOLUME 90.2 fL (81.0-99.0); MEAN PLATELET VOLUME 8.1 fL (7.9-10.8); MONOCYTES # (AUTO) 0.6 10^3/uL (0.0-1.0); MONOCYTES % (AUTO) 9.4 %; NEUTROPHILS # (AUTO) 3.2 10^3/uL (1.5-6.6); PLT - PLATELET COUNT 310 10^3/uL (130-450); RED BLOOD COUNT 4.42 10^6/uL (4.20-5.40); RED CELL DISTRIBUTION WIDTH 13.8 % (12.0-15.0); WHITE BLOOD COUNT 6.8 x10^3/uL (4.8-10.8)
[2017-12-09 13:11] LABS: ALBUMIN 3.8 g/dL (3.2-5.5); ALBUMIN/GLOBULIN RATIO 1.2 (1.0-2.2); ALKALINE PHOSPHATASE 82 IU/L (42-121); ALT ALANINE AMINOTRANSFERASE 15 IU/L (10-60); AST ASPARTATE AMINOTRANSFERASE 21 IU/L (10-42); BILIRUBIN,TOTAL 0.6 mg/dL (0.2-1.0); BUN - BLOOD UREA NITROGEN 15 mg/dL (6-20); CALCIUM 9.3 mg/dL (8.5-10.3); CARBON DIOXIDE - CO2 25 mmol/L (21-32); CHLORIDE 107 mmol/L (101-111); CHOL/HDL RATIO 2.8 (<4.4); CHOLESTEROL 142 mg/dL; CREATININE 0.6 mg/dL (0.4-1.0); GFR - MDRD 97 (>89); GLUCOSE 95 mg/dL (70-100); HDL CHOLESTEROL 51 mg/dL; LDL CHOLESTEROL,CALCULATED 52 mg/dL; SODIUM 141 mmol/L (135-145); TOTAL PROTEIN 7.1 g/dL (6.7-8.2); VLDL CHOLESTEROL 39 mg/dL
== END 2017-12-09 08:01 ==
LOC: LAB.WCP 08:00
PROVIDERS: ATTEND Family Medicine
DX: I25.10 Atherosclerotic heart disease of native coronary artery without angina pectoris (principal); I10 Essential (primary) hypertension
CPT/HCPCS: 36415; 80053; 80061; 83721; 85025

== ENCOUNTER 2018-09-03 13:27 | Outpatient (CLI) | payer MEDICARE ==
--- NOTE | 2018-09-03 17:05 | Mammography Report ---
Reason: SCREENING MAMMO Procedure Date: 09/03/2018 Accession Number: [id number] / [id number] Procedure: MGN - Screening Mammo Dig Bilat CPT Code: FULL RESULT: EXAM: Screening Mammo Dig Bilat DATE: 09/03/2018 1:56 PM CLINICAL HISTORY: Routine screening. No reported personal or family history of breast cancer. TECHNIQUE: (B) - Bilateral Bilateral CC and MLO views were obtained. COMPARISON: 03/02/2016 through 09/19/2012 PARENCHYMAL PATTERN: (F) - The breasts demonstrate diffuse fatty replacement bilaterally. . FINDINGS: Bilateral breasts: There are no suspicious masses, calcifications, or areas of distortion. IMPRESSION: Negative examination. BI-RADS category1 RECOMMENDATION: (ANNUAL) - Recommend routine annual screening mammography. BI-RADS CATEGORY: (1) - Negative STANDARD QUALIFYING STATEMENTS: 1. This examination was reviewed with the aid of Computer-Aided Detection (CAD). 2. A negative or benign imaging report should not preclude biopsy if clinically suspicious findings are present. 3. Dense breasts may obscure an underlying neoplasm. 4. This examination was reviewed without the aid of 3D breast imaging (tomosynthesis).
== END 2018-09-03 13:28 | disposition home or self-care (01) ==
LOC: DI.N 13:27
DX: Z12.31 Encounter for screening mammogram for malignant neoplasm of breast (principal)
CPT/HCPCS: 77067

== ENCOUNTER 2019-01-19 08:00 | Outpatient (CLI) | payer MEDICARE | END 2019-01-19 23:59 | disposition home or self-care (01) | LOC: LAB.R 08:00 | PROVIDERS: ATTEND Family Medicine | DX: R30.0 Dysuria (principal) | CPT/HCPCS: 87086; 87181 ==

== ENCOUNTER 2019-02-03 08:00 | Outpatient (CLI) | payer MEDICARE ==
[2019-02-03 18:41] LABS: BILIRUBIN,URINE NEGATIVE (NEGATIVE); GLUCOSE, URINE (UA) NEGATIVE (NEGATIVE); KETONES,URINE (UA) NEGATIVE (NEGATIVE); LEUKOCYTE ESTERASE, URINE NEGATIVE (NEGATIVE); NITRITE,URINE NEGATIVE (NEGATIVE); OCCULT BLOOD,URINE NEGATIVE (NEGATIVE); PH,URINE 5.5 PH (5.0-7.5); PROTEIN,URINE NEGATIVE (NEGATIVE); UROBILINOGEN,URINE 0.2 (NORMAL) E.U./dL (NORMAL)
[2019-02-03 18:43] LABS: CLARITY,URINE CLEAR (CLEAR)
== END 2019-02-03 23:59 | disposition home or self-care (01) ==
LOC: LAB.WCP 08:00
PROVIDERS: ATTEND Family Medicine
DX: R30.0 Dysuria (principal)
CPT/HCPCS: 81001; 81003; 87086

== ENCOUNTER 2019-11-25 08:00 | Outpatient (CLI) | payer MEDICARE ==
[2019-11-25 12:15] LABS: BASOPHILS # (AUTO) 0.1 10^3/uL (0.0-0.1); BASOPHILS % (AUTO) 0.7 %; EOSINOPHILS # (AUTO) 0.3 10^3/uL (0.0-0.7); EOSINOPHILS % (AUTO) 4.8 %; HGB - HEMOGLOBIN 13.2 g/dL (12.0-16.0); LYMPHOCYTES # (AUTO) 2.4 10^3/uL (1.5-3.5); LYMPHOCYTES % (AUTO) 33.3 %; MEAN CORPUSCULAR HEMOGLOBIN 29.6 pg (27.0-31.0); MEAN CORPUSCULAR HGB CONC 31.8 g/dL (32.0-36.0); MEAN PLATELET VOLUME 9.7 fL (7.9-10.8); MONOCYTES # (AUTO) 0.7 10^3/uL (0.0-1.0); MONOCYTES % (AUTO) 9.3 %; NEUTROPHILS # (AUTO) 3.7 10^3/uL (1.5-6.6); NEUTROPHILS % (AUTO) 51.6 %; PLT - PLATELET COUNT 362 10^3/uL (130-450); RED BLOOD COUNT 4.46 10^6/uL (4.20-5.40); RED CELL DISTRIBUTION WIDTH 12.6 % (12.0-15.0); WHITE BLOOD COUNT 7.1 x10^3/uL (4.8-10.8)
[2019-11-25 13:16] LABS: ALBUMIN 4.2 g/dL (3.2-5.5); ALBUMIN/GLOBULIN RATIO 1.3 (1.0-2.2); ALKALINE PHOSPHATASE 110 IU/L (42-121); ALT ALANINE AMINOTRANSFERASE 15 IU/L (10-60); AST ASPARTATE AMINOTRANSFERASE 18 IU/L (10-42); BILIRUBIN,TOTAL 0.6 mg/dL (0.2-1.0); BUN - BLOOD UREA NITROGEN 16 mg/dL (6-20); CALCIUM 9.8 mg/dL (8.5-10.3); CARBON DIOXIDE - CO2 26 mmol/L (21-32); CHLORIDE 104 mmol/L (101-111); CHOL/HDL RATIO 2.8 (<4.4); CHOLESTEROL 153 mg/dL; CREATININE 0.8 mg/dL (0.4-1.0); GLUCOSE 102 mg/dL (70-100); HDL CHOLESTEROL 55 mg/dL; LDL CHOLESTEROL,CALCULATED 69 mg/dL; LDL/HDL RATIO 1.3 (<4.4); SODIUM 139 mmol/L (135-145); TOTAL PROTEIN 7.4 g/dL (6.7-8.2); VLDL CHOLESTEROL 29 mg/dL
== END 2019-11-25 23:59 | disposition home or self-care (01) ==
LOC: LAB.WCP 08:00
PROVIDERS: ATTEND Family Medicine
DX: I25.10 Atherosclerotic heart disease of native coronary artery without angina pectoris (principal); I10 Essential (primary) hypertension; E78.5 Hyperlipidemia, unspecified; R00.2 Palpitations
CPT/HCPCS: 36415; 80053; 80061; 83721; 83735; 84443; 85025

== ENCOUNTER 2020-01-06 12:30 | Outpatient (CLI) | payer MEDICARE ==
--- NOTE | 2020-01-07 09:23 | Mammography Report ---
BILATERAL DIGITAL SCREENING MAMMOGRAM 3D/2D: 01/06/2020 CLINICAL: Routine screening. Comparison is made to exams dated: 09/03/2018 mammogram, 03/02/2016 mammogram, 01/17/2015 mammogram, 11/02 mammogram, 09/19/2012 mammogram, and 09/12/2011 mammogram - [facility]. There are scattered fibroglandular elements in both breasts. No significant masses, calcifications, or other findings are seen in either breast. There has been no significant interval change. IMPRESSION: NEGATIVE There is no mammographic evidence of malignancy. A 1 year screening mammogram is recommended. This exam was interpreted at Station ID: [id number]. NOTE: For mammograms, a report in lay terms will be sent to the patient. Approximately 15% of breast malignancies will not be visualized mammographically. In the management of a palpable breast mass, a negative mammogram must not discourage biopsy of a clinically suspicious lesion. Electronically Signed By: Dennis posadas/joon:01/06/2020 14:24:34 ACR BI-RADS Category 1: Negative 3341F PARENCHYMAL PATTERN: (A) - The breast(s) demonstrate(s) scattered fibroglandular densities. BI-RADS CATEGORY: (1) - 1 RECOMMENDATION: (ANNUAL) - Recommend routine annual screening mammography. [id number] 1 year screening LATERALITY: (B)
== END 2020-01-06 12:31 | disposition home or self-care (01) ==
LOC: DI 12:30
DX: Z12.31 Encounter for screening mammogram for malignant neoplasm of breast (principal)
CPT/HCPCS: 77063; 77067

== ENCOUNTER 2020-09-20 12:30 | Outpatient (CLI) | payer MEDICARE | END 2020-09-20 23:59 | disposition home or self-care (01) | LOC: LAB.R 12:30 | PROVIDERS: ATTEND Nurse Practitioner | DX: L08.9 Local infection of the skin and subcutaneous tissue, unspecified (principal) | CPT/HCPCS: 87070; 87181; 87205 ==

== ENCOUNTER 2020-12-13 09:04 | Outpatient (CLI) | payer MEDICARE ==
[2020-12-13 11:52] LABS: BASOPHILS # (AUTO) 0.1 10^3/uL (0.0-0.1); BASOPHILS % (AUTO) 0.8 %; EOSINOPHILS # (AUTO) 0.3 10^3/uL (0.0-0.7); EOSINOPHILS % (AUTO) 4.8 %; HCT - HEMATOCRIT 40.6 % (37.0-47.0); HGB - HEMOGLOBIN 13.1 g/dL (12.0-16.0); LYMPHOCYTES # (AUTO) 2.4 10^3/uL (1.5-3.5); LYMPHOCYTES % (AUTO) 37.1 %; MEAN CORPUSCULAR HEMOGLOBIN 30.2 pg (27.0-31.0); MEAN CORPUSCULAR HGB CONC 32.3 g/dL (32.0-36.0); MEAN CORPUSCULAR VOLUME 93.5 fL (81.0-99.0); MEAN PLATELET VOLUME 9.8 fL (7.9-10.8); MONOCYTES # (AUTO) 0.8 10^3/uL (0.0-1.0); MONOCYTES % (AUTO) 12.2 %; NEUTROPHILS # (AUTO) 2.9 10^3/uL (1.5-6.6); NEUTROPHILS % (AUTO) 45.1 %; PLT - PLATELET COUNT 350 10^3/uL (130-450); RED BLOOD COUNT 4.34 10^6/uL (4.20-5.40); RED CELL DISTRIBUTION WIDTH 12.5 % (12.0-15.0); WHITE BLOOD COUNT 6.5 x10^3/uL (4.8-10.8)
[2020-12-13 12:12] LABS: ALBUMIN 4.3 g/dL (3.2-5.5); ALBUMIN/GLOBULIN RATIO 1.5 (1.0-2.2); ALKALINE PHOSPHATASE 99 IU/L (42-121); ALT ALANINE AMINOTRANSFERASE 16 IU/L (10-60); AST ASPARTATE AMINOTRANSFERASE 19 IU/L (10-42); BILIRUBIN,TOTAL 0.4 mg/dL (0.2-1.0); BUN - BLOOD UREA NITROGEN 23 mg/dL (6-20); CALCIUM 9.7 mg/dL (8.5-10.3); CARBON DIOXIDE - CO2 27 mmol/L (21-32); CHLORIDE 104 mmol/L (101-111); CHOL/HDL RATIO 3.2 (<4.4); CHOLESTEROL 173 mg/dL; CREATININE 0.6 mg/dL (0.4-1.0); GFR - MDRD 96 (>89); GLUCOSE 110 mg/dL (70-100); HDL CHOLESTEROL 54 mg/dL; LDL CHOLESTEROL,CALCULATED 81 mg/dL; LDL/HDL RATIO 1.5 (<4.4); POTASSIUM 4.3 mmol/L (3.5-5.0); SODIUM 140 mmol/L (135-145); TOTAL PROTEIN 7.2 g/dL (6.7-8.2); TRIGLYCERIDES 192 mg/dL; VLDL CHOLESTEROL 38 mg/dL
[2020-12-13 12:24] LABS: THYROID STIMULATING HORMONE 5.22 uIU/mL (0.34-5.60)
== END 2020-12-13 23:59 | disposition home or self-care (01) ==
LOC: LAB.WCP 09:04
PROVIDERS: ATTEND Internal Medicine
DX: I10 Essential (primary) hypertension (principal); I47.1 Supraventricular tachycardia
CPT/HCPCS: 36415; 80053; 80061; 83721; 84443; 85025

== ENCOUNTER 2021-04-19 13:13 | Outpatient (CLI) | payer MEDICARE ==
--- NOTE | 2021-04-20 09:21 | Mammography Report ---
BILATERAL DIGITAL SCREENING MAMMOGRAM 3D/2D: 04/19/2021 CLINICAL: Routine screening. Comparison is made to exams dated: 01/06/2020 mammogram, 09/03/2018 mammogram, and 03/02/2016 mammogram - [facility]. There are scattered fibroglandular elements in both breasts. No significant masses, calcifications, or other findings are seen in either breast. There has been no significant interval change. IMPRESSION: NEGATIVE There is no mammographic evidence of malignancy. A 1 year screening mammogram is recommended. This exam was interpreted at Station ID: [id number]. NOTE: For mammograms, a report in lay terms will be sent to the patient. Approximately 15% of breast malignancies will not be visualized mammographically. In the management of a palpable breast mass, a negative mammogram must not discourage biopsy of a clinically suspicious lesion. Electronically Signed By: Israel Yen M.D. ar/treasurerad:04/19/2021 14:10:16 ACR BI-RADS Category 1: Negative 3341F PARENCHYMAL PATTERN: (A) - The breast(s) demonstrate(s) scattered fibroglandular densities. BI-RADS CATEGORY: (1) - 1 RECOMMENDATION: (ANNUAL) - Recommend routine annual screening mammography. [id number] 1 year screening LATERALITY: (B)
== END 2021-04-19 13:14 | disposition home or self-care (01) ==
LOC: DI.N 13:13
DX: Z12.31 Encounter for screening mammogram for malignant neoplasm of breast (principal)

== ENCOUNTER 2021-05-01 10:02 | Emergency (ER) | payer MEDICARE ==
--- NOTE | 2021-05-01 10:19 | ED Physician Documentation ---
PD HPI LOWER EXT INJURY - Stated complaint Stated Complaint: RT FT SWELLING - Chief complaint Chief Complaint: Ext Problem - History obtained from History obtained from: Patient - History of Present Illness PD HPI LOW EXT INJURY LOCATION: Right, Lower leg, Foot Type of injury: No: Fall, Twist Timing - onset: How many months ago (has had some swelling of ankle intermittent after walking for month or so. Was walking more the past few days and has increased the past couple of days. With some mild redness top of foot. Has noted some redness on top of foot.) Timing - details: Gradual onset Worsened by: Palpating, Other (walking) Associated symptoms: Swelling, Discolored (mild redness top of foot.). No: Weakness, Numbness Contributing factors: Other (denies history of rheumatoid nor gout.). 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 () : Nocturia, Frequency HEENT: Chronic sinusitis Psych: None Musculoskeletal: Osteoarthritis, Chronic back pain Derm: None - Past Surgical History General: Colonoscopy (about 10 years ago.) /FUNERAL DIRECTOR'S ASSISTANT: section Cardiovascular: Cardiac catheterization HEENT: Cataracts - Present Medications Home Medications: Ambulatory Orders Medication Instructions Recorded Confirmed Atenolol [Tenormin] 50 mg PO BID 07/28/17 07/28/17 Losartan [Cozaar] 25 mg PO DAILY 07/28/17 07/28/17 Omeprazole 20 mg PO DAILY 07/28/17 07/28/17 Simvastatin 20 mg PO QPM 07/28/17 07/28/17 Zolpidem [Ambien] 10 mg PO HS 07/28/17 07/28/17 amLODIPine [Norvasc] 2.5 mg PO DAILY 07/28/17 07/28/17 Pantoprazole Sodium [Protonix] 40 mg PO DAILY #30 tablet. 07/30/17 Meloxicam [Mobic] 7.5 mg PO BID 10 Days #14 tablet 05/01/21 - Allergies Allergies/Adverse Reactions: Allergies Allergy/AdvReac Type Severity Reaction Status Date / Time erythromycin base Allergy Cramps Verified 05/01/21 10:11 [From Erythrocin] Sulfa (Sulfonamide Allergy Hives Verified 05/01/21 10:11 Antibiotics) Tetanus Vaccines and Toxoid Allergy Edema Verified 05/01/21 10:11 naproxen AdvReac Unknown Verified 05/01/21 12:04 - Social History Does the pt smoke?: No Smoking Status: Never smoker - POLST Patient has POLST: No POLST Status: Full Code PD ED PE NORMAL - Vitals Vital signs reviewed: Yes - General General: Alert and oriented X 3, No acute distress, Well developed/nourished - Cardiac Cardiac: RRR, No murmur - Respiratory Respiratory: Clear bilaterally - Abdomen Abdomen: Soft, Non tender - Derm Derm: Normal color, Warm and dry, Other (dorsum right foot mid to anterior ankle area with tender and mild redness. No skin sores. Has fullness in popliteal area that is rounded most c/w Bakers cyst. Calf area is not tender nor tight. ) Results - Vitals Vitals: Oxygen O2 Source Room air - Rads (name of study) duplex U/S Radiology: Prelim report reviewed (no DVT. there is Bakers Cyst noted. ), See rad report PD MEDICAL DECISION MAKING - ED course Complexity details: reviewed results (Duplex U/S showing no DVT. Presumed Bakers cyst demonstrated. ), considered differential (seems likely tendonitis, less likely gout or rheumatoid. Does not seem like cellulitis. Low suspicion for DvT, the concern for which patient was sent to the ER.), d/w patient Departure - Departure Disposition: 01 Home, Self Care Clinical Impression: Foot swelling, Foot tendinitis Yeager's cyst of knee Qualifiers: Laterality: right Qualified Code(s): M71.21 - Synovial cyst of popliteal space [Yeager], right knee Condition: Stable Record reviewed to determine appropriate education?: Yes Instructions: ED Cyst Yeager, ED Leg Swelling Unilateral Follow-Up: Dann Abreu MD [Primary Care Provider] - Kj Townsend MD [Provider Admit Priv/Credential] - Prescriptions: Meloxicam [Mobic] 7.5 mg PO BID 10 Days #14 tablet Comments: Your ultrasound does not show any clots. There is a cyst on the back side of the knee called a Yeager's cyst. That is the small lump feeling your feeling there. Most the time these are benign in left in place. You could follow-up with the orthopedist regarding whether to have it drained or removed. It potentially can put pressure on the blood vessels in the back of the knee leading to some of the swelling you are having in the foot. However I think the swelling in your foot has more to do with a local process such as some inflammation of the tendons. I would suggest some anti- inflammatory such as meloxicam twice daily for a week. To that add Tylenol every 4-6 hours if needed for pains. Elevate the foot often to reduce swelling. Follow-up with your primary care if not improved over the next several days to week. Discharge Date/Time: 05/01/21 12:22
--- NOTE | 2021-05-01 11:24 | Ultrasound Report ---
PROCEDURE: Duplex Ext Veins Right INDICATIONS: right lower leg swelling; s/p air flight TECHNIQUE: Real-time imaging, as well as color and pulse Doppler interrogation, were performed of the lower extr emity deep veins from the inguinal ligament to the popliteal fossa. COMPARISON: None. FINDINGS: The deep veins are normally compressible, and free of intraluminal thrombus. Color and pu lse Doppler demonstrate normal phasic intraluminal flow. There is normal augmentation response to di stal compression maneuver. Complex Yeager's cyst, popliteal fossa, 5.6 x 2.3 x 3.7 cm. IMPRESSION: 1. Negative duplex right lower extremity venous ultrasound for DVT. 2. Complex Yeager's cyst, right popliteal fossa, 5.6 x 2.3 x 3.7 cm. Consider ruptured Yeager's cyst. Reviewed by: Paul Patel MD on 05/01/2021 11:22 AM [facility] Approved by: Paul Patel MD on 05/01/2021 11:22 AM [facility] Station ID: [id number]
[2021-05-01] MEDS ORDERED: NAPROXEN 250 MG TABLET PO STA (12:00)
[2021-05-01 12:01] VITALS: BP 167/93
== END 2021-05-01 12:22 | disposition home or self-care (01) ==
LOC: ED 10:02
DX: M77.8 Other enthesopathies, not elsewhere classified (principal); M79.89 Other specified soft tissue disorders; M79.671 Pain in right foot; M71.21 Synovial cyst of popliteal space [Baker], right knee; I10 Essential (primary) hypertension
CPT/HCPCS: 99283; 99284

== ENCOUNTER 2021-10-11 09:42 | Outpatient (CLI) | payer MEDICARE ==
--- NOTE | 2021-10-11 14:26 | Ultrasound Report ---
PROCEDURE: Duplex Aorta Complete INDICATIONS: BILATERAL CLAUDICATION TECHNIQUE: Color and pulse Doppler interrogation was performed of the aorta and iliac arterial systems, with shankar ge documentation. COMPARISON: None. FINDINGS: Aorta: 55.6 cm/sec, with biphasic or triphasic flow. Right lower extremity: Proximal common iliac artery: 87.5cm/sec, with triphasic flow. Distal common iliac artery: 83.6 cm/sec, with triphasic flow. Proximal external iliac artery: 92.5 cm/sec, with triphasic flow. Distal external iliac artery: 91.8 cm/sec, with triphasic flow. Common femoral artery: 60 cm/sec, with triphasic flow. Oconnell-scale imaging description: Widely patent vessels. Mild plaque. Left lower extremity: Proximal common iliac artery: 109.8 cm/sec, with triphasic flow. Distal common iliac artery: 86.8 cm/sec, with triphasic flow. Proximal external iliac artery: 74.6 cm/sec, with triphasic flow. Distal external iliac artery: 76.1 cm/sec, with triphasic flow. Common femoral artery: 92.6 cm/sec, with triphasic flow. Oconnell-scale imaging description: Widely patent vessels. Mild plaque. IMPRESSION: No evidence of hemodynamically significant aortoiliac stenotic disease. Mild plaque. Normal waveforms . Reviewed by: Paul Patel MD on 10/11/2021 2:25 PM PDT Approved by: Paul Patel MD on 10/11/2021 2:25 PM PDT Station ID: [id number]
--- NOTE | 2021-10-11 15:04 | Ultrasound Report ---
PROCEDURE: Duplex Lwr Ext Arterial Bilat INDICATIONS: BILATERAL CLAUDICATION TECHNIQUE: Color and pulse Doppler interrogation was performed of both lower extremity arterial systems, with im age documentation. COMPARISON: None FINDINGS: Right lower extremity: Common femoral artery: 60 cm/sec, with triphasic flow. Deep femoral artery: 47 cm/sec, with triphasic flow. Proximal superficial femoral artery: 83.6 cm/sec, with triphasic flow. Mid superficial femoral artery: 87.4 cm/sec, with triphasic flow. Distal superficial femoral artery: 68 cm/sec, with triphasic flow. Popliteal artery: 66.9 cm/sec, with triphasic flow. Posterior tibial artery: 75.1 cm/sec, with triphasic flow. Anterior tibial artery/dorsalis pedis: 80.1 cm/sec, with triphasic flow. Oconnell-scale imaging description: A right Yeager's cyst measures 4.4 x 2.1 x 0.9 cm. Left lower extremity: Common femoral artery: 92.6 cm/sec, with I phasic flow. Deep femoral artery: 57 cm/sec, with triphasic flow. Proximal superficial femoral artery: 66.9 cm/sec, with triphasic flow. Mid superficial femoral artery: 81.6 cm/sec, with triphasic flow. Distal superficial femoral artery: 65.6 cm/sec, with triphasic flow. Popliteal artery: 66.0 cm/sec, with triphasic flow. Posterior tibial artery: 45.6 cm/sec, with triphasic flow. Anterior tibial artery/dorsalis pedis: 78.3 cm/sec, with triphasic flow. Oconnell-scale imaging description: A left Yeager's cyst measures 4.7 x 3.9 x 1.3 cm IMPRESSION: 1. No significant stenosis in the lower extremities bilaterally. 2. Simple bilateral Yeager cysts. Reviewed by: Sreedhar Littlejohn on 10/11/2021 3:03 PM PDT Approved by: Sreedhar Littlejohn on 10/11/2021 3:03 PM PDT Station ID: [id number]
== END 2021-10-11 09:43 | disposition home or self-care (01) ==
LOC: DI 09:42
PROVIDERS: ATTEND Internal Medicine
DX: M71.22 Synovial cyst of popliteal space [Baker], left knee (principal); M71.21 Synovial cyst of popliteal space [Baker], right knee; I70.203 Unspecified atherosclerosis of native arteries of extremities, bilateral legs
CPT/HCPCS: 93925; 93978

== ENCOUNTER 2021-10-24 13:07 | Outpatient (CLI) | payer MEDICARE ==
--- NOTE | 2021-10-24 18:21 | CT Report ---
PROCEDURE: CT lumbar spine without contrast INDICATIONS: BILATERAL CLAUDICATION, LEG CRAMPS TECHNIQUE: Noncontrast 3 mm thick sections acquired from the T12 level to the sacrum. Sagittal and coronal refo rmats were constructed. For radiation dose reduction, the following was used: automated exposure co ntrol, adjustment of mA and/or kV according to patient size. COMPARISON: None. FINDINGS: Image quality: Excellent. Bones: Convex left thoracolumbar scoliosis present. 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 No acute vertebral body compression fractures. No suspicious lytic or blastic bony lesions. Central spinal caliber is of normal overall caliber. No pars defects. T12-L1: Disc space narrowing and posterior disc bulge results in mild central stenosis. Hypertrophic facet joints result in moderate left and severe right foraminal stenosis. L1-L2: Disc space narrowing with posterior disc bulge and ligamentum flavum laxity results in mode rate central stenosis. Severe right and severe left foraminal stenosis. L2-L3: Disc space narrowing with vacuum disc phenomenon and posterior osteophyte combines with hyp ertrophic facet joints and ligamentum flavum laxity to result in severe central stenosis. Moderate ri ght and severe left foraminal stenosis present. L3-L4: Disc space narrowing and posterior disc bulge and ligamentum flavum laxity combines with hyp ertrophic facet joints to result in severe central stenosis. Severe right and left foraminal stenosis . L4-L5: Disc space narrowing with circumferential disc bulge, ligamentum flavum laxity and hypertrop hic facet joints results in results in severe central stenosis and severe bilateral foraminal stenosi s present. L5-S1: Disc space narrowing with circumferential disc bulge and facet hypertrophy results in mild c entral stenosis. Moderate to severe bilateral foraminal stenosis present. Soft tissues: Moderate hiatal hernia. Visualized aorta is normal in caliber. IMPRESSION: 1. Multilevel degenerative disc disease and arthropathy results in varying degrees of central and for aminal stenosis including severe central and bilateral foraminal stenosis at L3-4 and L4-5 Reviewed by: Simon Akins MD on 10/24/2021 5:19 PM [facility] Approved by: Simon Akins MD on 10/24/2021 5:19 PM [facility] Station ID: [id number]
== END 2021-10-24 13:08 | disposition home or self-care (01) ==
LOC: DI 13:07
PROVIDERS: ATTEND Internal Medicine
DX: M47.816 Spondylosis without myelopathy or radiculopathy, lumbar region (principal); M47.817 Spondylosis without myelopathy or radiculopathy, lumbosacral region; M51.36 Other intervertebral disc degeneration, lumbar region; M48.061 Spinal stenosis, lumbar region without neurogenic claudication; M51.37 Other intervertebral disc degeneration, lumbosacral region; M48.07 Spinal stenosis, lumbosacral region

== ENCOUNTER 2022-06-25 12:59 | Outpatient (CLI) | payer MEDICARE ==
--- NOTE | 2022-06-26 15:37 | Mammography Report ---
BILATERAL DIGITAL SCREENING MAMMOGRAM 3D/2D: 06/25/2022 CLINICAL: Routine screening. Comparison is made to exams dated: 04/19/2021 mammogram, 01/06/2020 mammogram, 09/03/2018 mammogram, 02/03 mammogram, 01/17/2015 mammogram, and 11/23/2013 mammogram - [facility]. There are scattered areas of fibroglandular density in both breasts (category b / 25%-50% glandular t issue). No significant masses, calcifications, or other findings are seen in either breast. There has been no significant interval change. IMPRESSION: NEGATIVE There is no mammographic evidence of malignancy. A 1 year screening mammogram is recommended. Based on the Tyrer Cuzick model (a risk assessment model) the patients lifetime risk is 0.5% and her 10 year risk is 0.0%. According to the ACR, ACS, and NCCN guidelines, an annual breast MRI exam clover g with mammogram is recommended if the patients lifetime risk is 20% or greater. This exam was interpreted at Station ID: [id number]. NOTE: For mammograms, a report in lay terms will be sent to the patient. Approximately 15% of breast malignancies will not be visualized mammographically. In the management of a palpable breast mass, a negative mammogram must not discourage biopsy of a clinically suspicious lesion. Electronically Signed By: Brody juarez/joon:06/25/2022 17:11:22 ACR BI-RADS Category 1: Negative 3341F PARENCHYMAL PATTERN: (A) - The breast(s) demonstrate(s) scattered fibroglandular densities. BI-RADS CATEGORY: (1) - 1 RECOMMENDATION: (ANNUAL) - Recommend routine annual screening mammography. [id number] 1 year screening LATERALITY: (B)
== END 2022-06-25 13:00 | disposition home or self-care (01) ==
LOC: DI.N 12:59
PROVIDERS: ATTEND Internal Medicine
DX: Z12.31 Encounter for screening mammogram for malignant neoplasm of breast (principal)

== ENCOUNTER 2023-01-22 10:33 | Outpatient (CLI) | payer MEDICARE ==
[2023-01-22 12:27] LABS: BASOPHILS % (AUTO) 0.7 %; EOSINOPHILS # (AUTO) 0.2 10^3/uL (0.0-0.7); EOSINOPHILS % (AUTO) 3.1 %; HCT - HEMATOCRIT 42.1 % (37.0-47.0); HGB - HEMOGLOBIN 13.6 g/dL (12.0-16.0); LYMPHOCYTES # (AUTO) 2.3 10^3/uL (1.5-3.5); LYMPHOCYTES % (AUTO) 40.6 %; MEAN CORPUSCULAR HEMOGLOBIN 30.4 pg (27.0-31.0); MEAN CORPUSCULAR HGB CONC 32.3 g/dL (32.0-36.0); MEAN CORPUSCULAR VOLUME 94.2 fL (81.0-99.0); MEAN PLATELET VOLUME 9.2 fL (7.9-10.8); MONOCYTES # (AUTO) 0.6 10^3/uL (0.0-1.0); MONOCYTES % (AUTO) 10.3 %; NEUTROPHILS # (AUTO) 2.5 10^3/uL (1.5-6.6); NEUTROPHILS % (AUTO) 44.9 %; PLT - PLATELET COUNT 360 10^3/uL (130-450); RED BLOOD COUNT 4.47 10^6/uL (4.20-5.40); RED CELL DISTRIBUTION WIDTH 12.4 % (12.0-15.0); WHITE BLOOD COUNT 5.5 x10^3/uL (4.8-10.8)
[2023-01-22 13:05] LABS: BUN - BLOOD UREA NITROGEN 15 mg/dL (6-20); CALCIUM 10.3 mg/dL (8.5-10.3); CARBON DIOXIDE - CO2 30 mmol/L (21-32); CHLORIDE 104 mmol/L (101-111); CHOLESTEROL 219 mg/dL; CREATININE 0.6 mg/dL (0.6-1.3); GFR - MDRD 95 (>89); GLUCOSE 98 mg/dL (74-104); HDL CHOLESTEROL 55 mg/dL; LDL CHOLESTEROL,CALCULATED 116 mg/dL; LDL/HDL RATIO 2.1 (<4.4); POTASSIUM 4.1 mmol/L (3.5-4.5); SODIUM 139 mmol/L (135-145); TRIGLYCERIDES 239 mg/dL (48-352); VLDL CHOLESTEROL 48 mg/dL
[2023-01-22 13:14] LABS: THYROID STIMULATING HORMONE 3.56 uIU/mL (0.34-5.60)
== END 2023-01-22 10:34 | disposition home or self-care (01) ==
LOC: LAB.N 10:33
PROVIDERS: ATTEND Internal Medicine
DX: I10 Essential (primary) hypertension (principal); E78.5 Hyperlipidemia, unspecified; R94.6 Abnormal results of thyroid function studies; M99.33 Osseous stenosis of neural canal of lumbar region
CPT/HCPCS: 36415; 80048; 80061; 83721; 84443; 85025

== ENCOUNTER 2023-06-28 09:05 | Outpatient (CLI) | payer MEDICARE ==
[2023-06-28 12:10] LABS: BASOPHILS # (AUTO) 0.1 10^3/uL (0.0-0.1); BASOPHILS % (AUTO) 0.9 %; EOSINOPHILS # (AUTO) 0.2 10^3/uL (0.0-0.7); EOSINOPHILS % (AUTO) 3.2 %; HCT - HEMATOCRIT 40.9 % (37.0-47.0); HGB - HEMOGLOBIN 12.9 g/dL (12.0-16.0); LYMPHOCYTES # (AUTO) 2.5 10^3/uL (1.5-3.5); LYMPHOCYTES % (AUTO) 37.7 %; MEAN CORPUSCULAR HGB CONC 31.5 g/dL (32.0-36.0); MEAN CORPUSCULAR VOLUME 95.1 fL (81.0-99.0); MEAN PLATELET VOLUME 9.7 fL (7.9-10.8); MONOCYTES # (AUTO) 0.7 10^3/uL (0.0-1.0); MONOCYTES % (AUTO) 11.1 %; NEUTROPHILS # (AUTO) 3.1 10^3/uL (1.5-6.6); NEUTROPHILS % (AUTO) 46.9 %; PLT - PLATELET COUNT 373 10^3/uL (130-450); RED CELL DISTRIBUTION WIDTH 12.6 % (12.0-15.0); WHITE BLOOD COUNT 6.7 x10^3/uL (4.8-10.8)
[2023-06-28 12:23] LABS: ALBUMIN 4.1 g/dL (3.2-5.5); ALBUMIN/GLOBULIN RATIO 1.3 (1.0-2.2); ALKALINE PHOSPHATASE 105 IU/L (42-121); ALT ALANINE AMINOTRANSFERASE 13 IU/L (10-60); AST ASPARTATE AMINOTRANSFERASE 14 IU/L (10-42); BILIRUBIN,TOTAL 0.4 mg/dL (0.2-1.0); BUN - BLOOD UREA NITROGEN 19 mg/dL (6-20); CALCIUM 9.6 mg/dL (8.5-10.3); CARBON DIOXIDE - CO2 29 mmol/L (21-32); CHLORIDE 106 mmol/L (101-111); CHOLESTEROL 189 mg/dL; CREATININE 0.6 mg/dL (0.6-1.3); GFR - MDRD 95 (>89); GLUCOSE 95 mg/dL (74-104); HDL CHOLESTEROL 62 mg/dL; LDL CHOLESTEROL,CALCULATED 92 mg/dL; LDL/HDL RATIO 1.5 (<4.4); POTASSIUM 3.5 mmol/L (3.5-4.5); SODIUM 141 mmol/L (135-145); TOTAL PROTEIN 7.2 g/dL (6.4-8.9); TRIGLYCERIDES 173 mg/dL (48-352); VLDL CHOLESTEROL 35 mg/dL
== END 2023-06-28 09:06 | disposition home or self-care (01) ==
LOC: LAB.N 09:05
PROVIDERS: ATTEND Internal Medicine
DX: I10 Essential (primary) hypertension (principal); E78.5 Hyperlipidemia, unspecified; R94.6 Abnormal results of thyroid function studies
CPT/HCPCS: 36415; 80053; 80061; 83721; 84443; 85025

== ENCOUNTER 2023-09-16 17:41 | Emergency (ER) | payer MEDICARE ==
[2023-09-16] MEDS ORDERED: iohexoL-300 100 ML VIAL ONE (18:22)
[2023-09-16 18:40] LABS: BASOPHILS % (AUTO) 0.3 %; EOSINOPHILS # (AUTO) 0.1 10^3/uL (0.0-0.7); EOSINOPHILS % (AUTO) 0.6 %; HCT - HEMATOCRIT 40.9 % (37.0-47.0); HGB - HEMOGLOBIN 13.2 g/dL (12.0-16.0); LYMPHOCYTES # (AUTO) 2.1 10^3/uL (1.5-3.5); LYMPHOCYTES % (AUTO) 19.5 %; MEAN CORPUSCULAR HEMOGLOBIN 30.3 pg (27.0-31.0); MEAN CORPUSCULAR HGB CONC 32.3 g/dL (32.0-36.0); MEAN CORPUSCULAR VOLUME 93.8 fL (81.0-99.0); MEAN PLATELET VOLUME 8.7 fL (7.9-10.8); MONOCYTES # (AUTO) 0.8 10^3/uL (0.0-1.0); MONOCYTES % (AUTO) 7.1 %; NEUTROPHILS # (AUTO) 7.8 10^3/uL (1.5-6.6); NEUTROPHILS % (AUTO) 72.2 %; PLT - PLATELET COUNT 369 10^3/uL (130-450); RED BLOOD COUNT 4.36 10^6/uL (4.20-5.40); RED CELL DISTRIBUTION WIDTH 12.4 % (12.0-15.0); WHITE BLOOD COUNT 10.8 x10^3/uL (4.8-10.8)
--- NOTE | 2023-09-16 18:41 | ED Physician Documentation ---
History of Present Illness - Stated complaint Stated Complaint: FALL - Chief complaint Chief Complaint: Trauma Hd/Nk - History obtained from History obtained from: Patient, Friend - History of Present Illness Timing: Today Pain level max: 0 Pain level now: 0 - Additonal information Additional information: Patient is an 82-year-old female who presents to the emergency department stating that she took a benzodiazepine this morning prior to having dental work done. She states she had a root canal on the right side. She states after arriving home she has had difficulty walking and standing. Fell several times and struck her head on the ground. She does not take any blood thinners. She thinks that she may have knocked herself out. No fevers. No chills. No cough. No congestion. She states that she has difficulty walking anyway because of chronic weakness and numbness in her legs. No loss of bowel or bladder control. No seizure activity. Nothing makes it better or worse. 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 : Nocturia, Frequency HEENT: Chronic sinusitis Psych: None Musculoskeletal: Osteoarthritis, Chronic back pain Derm: None - Past Surgical History General: Colonoscopy /JOINT SETTER: section Cardiovascular: Cardiac catheterization HEENT: Cataracts - Present Medications Home Medications: Ambulatory Orders Medication Instructions Recorded Confirmed Atenolol [Tenormin] 50 mg PO BID 07/28/17 07/28/17 Losartan [Cozaar] 25 mg PO DAILY 07/28/17 07/28/17 Omeprazole 20 mg PO DAILY 07/28/17 07/28/17 Simvastatin 20 mg PO QPM 07/28/17 07/28/17 Zolpidem [Ambien] 10 mg PO HS 07/28/17 07/28/17 amLODIPine [Norvasc] 2.5 mg PO DAILY 07/28/17 07/28/17 Pantoprazole Sodium [Protonix] 40 mg PO DAILY #30 tablet. 07/30/17 Meloxicam [Mobic] 7.5 mg PO BID 10 Days #14 tablet 05/01/21 - Allergies Allergies/Adverse Reactions: Allergies Allergy/AdvReac Type Severity Reaction Status Date / Time erythromycin base Allergy Cramps Verified 09/16/23 17:53 [From Erythrocin] Sulfa (Sulfonamide Allergy Hives Verified 09/16/23 17:53 Antibiotics) Tetanus Vaccines and Toxoid Allergy Edema Verified 09/16/23 17:53 naproxen AdvReac Unknown Verified 09/16/23 17:53 - Social History Does the pt smoke?: No Smoking Status: Never smoker - POLST Patient has POLST: No POLST Status: Full Code PD ED PE NORMAL - Vitals Vital signs reviewed: Yes - General General: Alert and oriented X 3, No acute distress - HEENT HEENT: Atraumatic, PERRL, EOMI, Moist mucous membranes, Other (Mild left-sided facial droop she states the root canal was right lower.) - Neck Neck: Supple, no meningeal sign, No bony TTP - Cardiac Cardiac: RRR, Strong equal pulses - Respiratory Respiratory: No respiratory distress, Clear bilaterally - Abdomen Abdomen: Soft, Non tender, Non distended - Back Back: No CVA TTP, No spinal TTP - Derm Derm: Warm and dry - Extremities Extremities: No deformity, No tenderness to palpate, No edema, No calf tenderness / cord - Neuro Neuro: Alert and oriented X 3 Eye Opening: Spontaneous Motor: Obeys Commands Verbal: Oriented GCS Score: 15 - Psych Psych: Normal mood, Normal affect Results - Vitals Vitals: Vital Signs - 24 hr 09/16/23 09/16/23 17:48 20:07 Temperature 36.4 C L Heart Rate 83 85 Respiratory 16 17 Rate Blood Pressure 157/88 H 181/103 H O2 Saturation 98 96 Oxygen O2 Source Room air - EKG (time done) 1836 EKG releavant findings:: EKG personally interpreted by author of this note. Relevant findings are: Rate: Rate (enter#) (86) Rhythm: NSR [place]: Normal Intervals: Normal OR QRS: Normal Ischemia: Normal ST segments - Labs Labs: Laboratory Tests 09/16/23 09/16/23 09/16/23 18:33 18:33 18:33 WBC 10.8 RBC 4.36 Hgb 13.2 Hct 40.9 MCV 93.8 MCH 30.3 MCHC 32.3 RDW 12.4 Plt Count 369 MPV 8.7 Neut # (Auto) 7.8 H Lymph # (Auto) 2.1 [place] # (Auto) 0.8 Eos # (Auto) 0.1 Baso # (Auto) 0.0 Absolute Nucleated RBC 0.00 Nucleated RBC % 0.0 PT 10.8 INR 1.0 APTT 28.3 Sodium 138 Potassium 4.3 Chloride 104 Carbon Dioxide 28 Anion Gap 6.0 BUN 23 H Creatinine 0.6 Estimated GFR (MDRD) 95 Glucose 111 H Calcium 10.0 Total Bilirubin 0.3 AST 16 ALT 14 Alkaline Phosphatase 110 Total Protein 7.5 Albumin 4.3 Globulin 3.2 Albumin/Globulin Ratio 1.3 Lipase 20 Urine Color Urine Clarity Urine pH Ur Specific [place] Urine Protein Urine Glucose (UA) Urine Ketones Urine Occult Blood Urine Nitrite Urine Bilirubin Urine Urobilinogen Ur Leukocyte Esterase Urine RBC Urine WBC Ur Squamous Epith Cells Urine Bacteria Ur Microscopic Review Urine Culture Comments 09/16/23 19:00 WBC RBC Hgb Hct MCV MCH MCHC RDW Plt Count MPV Neut # (Auto) Lymph # (Auto) [place] # (Auto) Eos # (Auto) Baso # (Auto) Absolute Nucleated RBC Nucleated RBC % PT INR APTT Sodium Potassium Chloride Carbon Dioxide Anion Gap BUN Creatinine Estimated GFR (MDRD) Glucose Calcium Total Bilirubin AST ALT Alkaline Phosphatase Total Protein Albumin Globulin Albumin/Globulin Ratio Lipase Urine Color YELLOW Urine Clarity SL. CLOUDY Urine pH 7.0 Ur Specific [place] <=1.005 Urine Protein NEGATIVE Urine Glucose (UA) NEGATIVE Urine Ketones NEGATIVE Urine Occult Blood NEGATIVE Urine Nitrite POSITIVE H Urine Bilirubin NEGATIVE Urine Urobilinogen 0.2 (NORMAL) Ur Leukocyte Esterase NEGATIVE Urine RBC 0-5 Urine WBC 4-5 Ur Squamous Epith Cells FEW Squamous Urine Bacteria Moderate H Ur Microscopic Review INDICATED Urine Culture Comments INDICATED - Rads (name of study) head CT Relevant Findings:: Final report received, See rad report CTA head and neck Relevant Findings:: Final report received, See rad report PD Medical Decision Making - ED course Complexity details: reviewed results, re-evaluated patient, considered d ifferential, d/w patient ED course: 82-year-old female is found to have a left-sided facial droop and left-sided weakness. Unclear when the symptoms started. She does have chronic left leg weakness. Her facial droop left arm weakness and most of her left leg weakness resolved in the emergency department, back to her baseline. She is adamant that she will not have an MRI. She is ambulating without difficulty here. Her urinalysis appears contaminated, does not have any dysuria, urinary frequency or other symptoms of UTI. We will hold antibiotics at this time. Unclear if her falls and weakness are due to the benzodiazepine that she took earlier versus a TIA. Patient refuses observation to the hospital. Patient states that she has an appointment with her doctor on . Recommend that she start on a baby aspirin daily. Patient is agreeable to this. She will follow-up with her doctor for further care and return if she worsens. Patient counseled regarding signs and symptoms for which I believe and urgent re-evaluation would be necessary. Patient with good understanding of and agreement to plan and is comfortable going home at this time This document was made in part using voice recognition software. While efforts are made to proofread this document, sound alike and grammatical errors may occur. Departure - Departure Disposition: 01 Home, Self Care Clinical Impression: Weakness Condition: Good Instructions: ED Transient Ischemic Attack Follow-Up: Dann Abreu MD [Primary Care Provider] - 09/19/23 Comments: The cause of your symptoms is unclear today, it may be related to the medications you took earlier, however it could also be due to to a transient ischemic attack or "mini stroke". Your head CT and CT angiogram of your head an d neck do not show any acute abnormalities. I would recommend starting on the baby aspirin daily and following up with your doctor on . As we discussed we would usually do an MRI but you have refused this today. Please return if you worsen Forms: PCP List Discharge Date/Time: 09/16/23 20:08 NIHSS - Time Time: 18:30 - Level of Consciousness Level of consciousness: (0) Alert, Keenly responsive LOC Questions: (0) Answers both Q's correct LOC Commands: (0) Performs both correctly - Gaze Best Gaze: (0) Normal - Visual Visual: (0) No loss - Facial Palsy Facial Palsy: (1) Minor paralysis - Motor Arms (both separate) Motor Arm (right): (0) No drift Motor Arm (left): (1) Drift - Motor Legs (both separate) Motor Leg (right): (0) No drift Motor Leg (left): (2) Some effort against gravity - Limb Ataxia Limb Ataxia: (1) Present in 1 limb - Sensory Sensory: (0) Normal - Best Language Best Language: (0) No aphasia - Dysarthria Dysarthria: (0) Normal - Extinction and Inattention (formally neg Extinction and inattention: (0) No abnormality - Total Score/Results Total Score/Result: 5
[2023-09-16 18:49] LABS: PARTIAL THROMBOPLASTIN TIME 28.3 secs (24.9-33.3)
[2023-09-16 18:51] LABS: ALBUMIN 4.3 g/dL (3.2-5.5); ALBUMIN/GLOBULIN RATIO 1.3 (1.0-2.2); BILIRUBIN,TOTAL 0.3 mg/dL (0.2-1.0); CREATININE 0.6 mg/dL (0.6-1.3); POTASSIUM 4.3 mmol/L (3.5-4.5); TOTAL PROTEIN 7.5 g/dL (6.4-8.9)
[2023-09-16 18:54] LABS: PT - PROTHROMBIN TIME 10.8 secs (9.9-12.6)
--- NOTE | 2023-09-16 19:09 | CT Report ---
PROCEDURE: Head W/O Stroke Protocol INDICATIONS: L sided weakness, facial droop TECHNIQUE: Noncontrast 4.5 mm thick angled axial sections acquired from the foramen magnum to the vertex, with c oronal reformats. For radiation dose reduction, the following was used: automated exposure control, adjustment of mA and/or kV according to patient size. COMPARISON: None. FINDINGS: Image quality: Excellent. CSF spaces: Basal cisterns are patent. No extra-axial fluid collections. Ventricles are normal in size and shape. Brain: No midline shift. No intracranial masses or hemorrhage. [place]-white matter interface is norm al. Skull and face: Calvarium and visualized facial bones are intact, without suspicious lesions. Sinuses: Visualized sinuses and mastoids are clear. IMPRESSION: No acute intracranial pathology. Age related volume loss and mild white matter chronic small vessel i schemic changes. Findings were discussed with ordering provider on 09/16/2023 at 7:07 PM. This study fulfills neurological imaging criteria for inclusion or exclusion of acute stroke therapie s based on available published neurological imaging guidelines. Reviewed by: Jc Moralez MD on 09/16/2023 7:07 PM PDT Approved by: Jc Moralez MD on 09/16/2023 7:07 PM PDT Station ID: [id number]
[2023-09-16 19:11] LABS: BILIRUBIN,URINE NEGATIVE (NEGATIVE); CLARITY,URINE SL. CLOUDY (CLEAR); GLUCOSE, URINE (UA) NEGATIVE (NEGATIVE); KETONES,URINE (UA) NEGATIVE (NEGATIVE); LEUKOCYTE ESTERASE, URINE NEGATIVE (NEGATIVE); NITRITE,URINE POSITIVE (NEGATIVE); OCCULT BLOOD,URINE NEGATIVE (NEGATIVE); PROTEIN,URINE NEGATIVE (NEGATIVE); UROBILINOGEN,URINE 0.2 (NORMAL) E.U./dL (NORMAL)
--- NOTE | 2023-09-16 19:13 | CT Report ---
PROCEDURE: Angio Head/Neck INDICATIONS: L sided weakness, facial droop TECHNIQUE: After the administration of intravenous contrast, 1 mm thick sections acquired from the aortic arch t hrough the [place]. 3-dimensional osylzmy-qmqtqhdwa-rbysxqmhyc (MIP) and/or volume renderin g reformats were acquired of the central intracranial vasculature and neck separately. For radiation dose reduction, the following was used: automated exposure control, adjustment of mA and/or kV acco rding to patient size. CONTRAST: omnipaque 300 60 ml COMPARISON: None. FINDINGS: Image quality: Diagnostic. HEAD CT: CSF Spaces: Basal cisterns are patent. No extra-axial fluid collections. Ventricles are normal in size and shape. Brain: No significant abnormality is seen for scanning technique. No area of abnormal intracranial enhancement is seen. Skull and face: Calvarium and visualized facial bones appear intact, without suspicious lesions. Sinuses: Visualized sinuses and mastoids are clear. HEAD CT ANGIOGRAPHY: Anterior circulation: Intracranial internal carotid arteries are normal in size and flow. The flow within the paired anterior cerebral arteries is normal and symmetric. The flow within the middle cer ebral arteries is normal and symmetric. The anterior communicating artery is seen. No aneurysms are seen. Posterior circulation: Visualized portions of the vertebral arteries demonstrate normal caliber, and join to form a normal appearing basilar artery. Flow within the posterior cerebral arteries is norm al and symmetric. No aneurysms are seen. NECK CT ANGIOGRAPHY: Carotid system: The great vessels demonstrate a conventional anatomy as they arise from the aortic a rch. The origins of the common carotid arteries appear patent. The common carotid arteries demonstr ate normal caliber and courses. The bifurcation regions are both widely patent. The internal caroti d arteries demonstrate normal calibers and courses. Posterior circulation: The origins of the vertebral arteries both appear widely patent. The more shaw perior extracranial portions of both vertebral arteries also demonstrate normal courses and calibers. They join to form a normal appearing basilar artery. Soft tissues: Lobulated and enlarged thyroid lobe with suggestion of multiple hypodense nodule is see n. No gross neck soft tissue lymphadenopathy. Bones: No suspicious bony lesions. Moderate to severe degenerative disc disease throughout cervical spine is seen. IMPRESSION: No hemodynamically significant stenosis or aneurysm is seen in the intracranial circulation. No hemodynamically significant stenosis is noted in bilateral neck arteries. No area of abnormal intracranial enhancement. Enlarged thyroid gland with suggestion of multiple pulmonary nodules concerning for nodular goiter. N onurgent outpatient ultrasound follow-up can be done for further evaluation of this region. The estimate of stenosis included in the report of the imaging study was calculated using the NASCET method Reviewed by: Jc Moralez MD on 09/16/2023 7:11 PM PDT Approved by: Jc Moralez MD on 09/16/2023 7:11 PM PDT Station ID: [id number]
[2023-09-16 19:17] LABS: BACTERIA,URINE Moderate /HPF (None Seen); RBC,URINE 0-5 /HPF (0-5); SQUAMOUS EPITHELIAL CELL,UR FEW Squamous (<= Few)
[2023-09-16] MEDS: iohexoL-300 100 ML VIAL IVP ONE (19:21)
[2023-09-16 20:11] VITALS: BP 181/103; O2SAT 96
== END 2023-09-16 20:08 | disposition home or self-care (01) ==
LOC: ED 17:41
DX: R29.810 Facial weakness (principal); R53.1 Weakness; W18.39XA Other fall on same level, initial encounter; I10 Essential (primary) hypertension; E78.00 Pure hypercholesterolemia, unspecified; Z79.899 Other long term (current) drug therapy
CPT/HCPCS: 36415; 70450; 70496; 70498; 80053; 81001; 83690; 85025; 85610; 85730; 87086; 93005; 99283; 99284; Q9967; 81003